=== PATIENT | male | born 2000 | race Two or more races ===

== ENCOUNTER 2019-05-21 23:24 | Emergency (ER) | payer SELFPAY ==
[~2019-05-21] VITALS: Ht 188 cm; Wt 97.5 kg
[2019-05-22 00:17] VITALS: Ht 188 cm; Wt 97.5 kg
[2019-05-22 01:39] LABS: BASOPHIL % 0.4 % (0-2); PLATELET COUNT 228 x10^3mcL (130-400); RED CELL DISTRIBUTION WIDTH 12.9 % (11.5-14.5)
[2019-05-22 01:51] LABS: CALCIUM 9.5 mg/dL (8.5-10.1); CARBON DIOXIDE 27.1 mmol/L (21-32); CHLORIDE SERUM 95 mmol/L (98-107); CREATININE SERUM 0.9 mg/dL (0.7-1.3); GFR1 > 60 mL/min; GLUCOSE SERUM 118 mg/dL (74-106); POTASSIUM SERUM 3.4 mmol/L (3.5-5.1); SODIUM SERUM 131 mmol/L (136-145)
[2019-05-22 01:57] LABS: ALBUMIN 4.5 g/dL (3.4-5.0); ALKALINE PHOSPHATASE 115 U/L (46-116); ALT/SGPT 34 U/L (16-63); AST/SGOT 13 U/L (15-37)
[2019-05-22 01:58] LABS: TOTAL PROTEIN, SERUM 8.6 g/dL (6.4-8.2)
[2019-05-22 04:51] VITALS: BP 127/84
== END 2019-05-22 04:51 | disposition home or self-care (01) ==
LOC: ED 23:24
DX: K52.9 Noninfective gastroenteritis and colitis, unspecified (principal)
CPT/HCPCS: J2405